=== PATIENT | female | born 1975 | race Two or more races ===

== ENCOUNTER 2018-01-24 19:38 | Emergency (ER) | payer MEDICAID ==
[~2018-01-24] VITALS: Ht 152.4 cm; Wt 55.3 kg
--- NOTE | 2018-01-24 19:38 | NUR ---
PT BB SELF C/O ABDOMINAL PAIN RADAITING TO LOWER BACK X5 DAYS 02/05. PT IS [place] SPEAKING ONLY. VSS NO ACUTE DISTRESS NOTED AT THIS TIME. WILL CONTINUE TO MONITOR FOR ANY CHANGES DURING THE SHIFT.
--- NOTE | 2018-01-24 19:39 | NUR ---
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
[2018-01-24] MEDS ORDERED: MORPHINE SULFATE INJ 2 MG/ML DISP.SYRIN IV ONE (21:30)
[2018-01-24] MEDS ORDERED: IV NS 0.9% 1,000 ML BAG IV ONE (21:30)
[2018-01-24] MEDS ORDERED: ONDANSETRON HCL/PF 4 MG/2 ML VIAL IVP ONE (21:30)
[2018-01-24 21:31] LABS: BASOPHILS % (AUTO) 0.4 % (0.0-2.0); EOSINOPHILS % (AUTO) 1.9 % (0.0-6.0); HEMATOCRIT 31 % (33-45); HEMOGLOBIN 10.1 g/dL (11.5-14.8); LYMPHOCYTES # (AUTO) 2.8 /CMM (0.8-4.8); LYMPHOCYTES % (AUTO) 31.2 % (20.0-44.0); MEAN CORPUSCULAR HEMOGLOBIN 22 PG (26.0-33.0); MEAN CORPUSCULAR HGB CONC 33 g/dl (31.0-36.0); MEAN CORPUSCULAR VOLUME 67 fL (82-100); MONOCYTES # (AUTO) 0.6 /CMM (0.1-1.30); MONOCYTES % (AUTO) 6.2 % (2.0-12.0); NEUTROPHILS # (AUTO) 5.3 /CMM (1.8-8.9); NEUTROPHILS % (AUTO) 60.3 % (43.0-81.0); PLATELET COUNT (AUTO) 262 /CMM (150-450); RDW COEFFICIENT OF VARIATION 15.3 (11.5-15.0); WHITE BLOOD COUNT (AUTO) 8.9 K/uL (4.3-11.0)
[2018-01-24] MEDS ORDERED: ONDANSETRON HCL/PF 4 MG/2 ML VIAL ONE (21:37)
[2018-01-24] MEDS ORDERED: MORPHINE SULFATE INJ 4 MG/ML DISP.SYRIN ONE (21:38)
[2018-01-24 21:44] LABS: CREATININE 0.7 mg/dL (0.6-1.3); POTASSIUM 3.4 mmol/L (3.5-5.1)
[2018-01-24 21:48] LABS: INR 0.97 (0.85-1.15)
[2018-01-24 21:49] LABS: ALBUMIN 3.7 g/dL (3.4-5.0); BILIRUBIN,DIRECT 0.1 mg/dL (0.0-0.2); BILIRUBIN,TOTAL 0.2 mg/dL (0.2-1.0); TOTAL PROTEIN, SERUM 7.7 g/dL (6.4-8.2)
[2018-01-24] MEDS ORDERED: IOHEXOL-300 100 ML VIAL IV ONE (21:49)
[2018-01-24 22:36] LABS: APPEARANCE,URINE SL CLOUDY (CLEAR); BILIRUBIN,URINE NEGATIVE (NEGATIVE); BLOOD, URINE NEGATIVE Ery/uL (NEGATIVE); COLOR,URINE YELLOW (YELLOW); KETONES,URINE TRACE (NEGATIVE); LEUKOCYTE ESTERASE ,URINE NEGATIVE (NEGATIVE); NITRITE, URINE NEGATIVE (NEGATIVE); PROTEIN,URINE NEGATIVE (NEGATIVE); UGLUCOSE NEGATIVE (NEGATIVE); UROBILINOGEN,URINE 0.2 EU/dL (0.2)
[2018-01-24 22:54] LABS: EOSINOPHILS % (MANUAL) 3 % (0-4); LYMPHOCYTES % (MANUAL) 25 % (16-48); MONOCYTES % (MANUAL) 6 % (0-11.0); NEUTROPHILS % (MANUAL) 66 (42-76)
[2018-01-24 23:49] LABS: BACTERIA,URINE Moderate /HPF (None Seen); RBC,URINE 0-2 /HPF (0-2); SQUAMOUS EPITHELIAL CELL,UR Few /HPF (None Seen)
[2018-01-25 00:37] VITALS: BP 135/84
== END 2018-01-25 00:37 | disposition home or self-care (01) ==
LOC: ER 19:41
DX: R10.84 Generalized abdominal pain (principal); Z87.42 Personal history of other diseases of the female genital tract
CPT/HCPCS: 36415; 74177; 80048; 80076; 81001; 83690; 85025; 85730; 87077; 87086; 87186; 96374; 99285; A4606; J2405; J7030; Q9967; Z7610; 81000-TC; J2270

== ENCOUNTER 2018-10-09 19:35 | Emergency (ER) | payer MEDICAID ==
[~2018-10-09] VITALS: Ht 154.9 cm; Wt 61.7 kg
[2018-10-09 20:12] VITALS: BP 119/68
--- NOTE | 2018-10-09 20:12 | NUR ---
BIBF. C/O "R FOOT PAIN FOR AROUND 3 DAYS, R GREAT TOE PAIN STARTING FROM TOENAIL RADIATING TO MIDFOOT, NO HISTORY OF TRAVEL RECENTLY" -SOB. -N/V -DIZZY. AOX4. AMBULATORY. -TRAUMA NOTED ON SITE.
== END 2018-10-09 22:14 | disposition home or self-care (01) ==
LOC: ER 19:37
DX: M79.674 Pain in right toe(s) (principal)
CPT/HCPCS: 73660-TC

== ENCOUNTER 2020-12-21 23:08 | Emergency (ER) | payer MEDICAID ==
[~2020-12-21] VITALS: Ht 160 cm; Wt 62.6 kg
--- NOTE | 2020-12-21 23:16 | NUR ---
PT AAOX4. BIBSELF C/O BLADDER PAIN X2 DAYS. PLACED IN BED 2 ON MONITOR AND PULSE OX. VSS. AWAITING ER MD FOR EVAL.
[2020-12-22 00:01] LABS: BILIRUBIN,URINE Negative (NEGATIVE); COLOR,URINE YELLOW (YELLOW); LEUKOCYTE ESTERASE ,URINE Small (NEGATIVE); NITRITE, URINE Negative (NEGATIVE); PH,URINE 5.5 (5.0-8.0); PROTEIN,URINE Negative (NEGATIVE); UGLUCOSE Negative (NEGATIVE); UROBILINOGEN,URINE 0.2 EU/dL (0.2)
[2020-12-22 00:28] LABS: BACTERIA,URINE Few /HPF (None Seen); RBC,URINE 0-2 /HPF (0-2); SQUAMOUS EPITHELIAL CELL,UR Moderate /HPF (None Seen); YEAST,URINE Few /HPF (None Seen)
[2020-12-22] MEDS ORDERED: NITR100C6 PO (00:38)
[2020-12-22 00:57] VITALS: BP 129/72
== END 2020-12-22 00:57 | disposition home or self-care (01) ==
LOC: ER 23:12
DX: N39.0 Urinary tract infection, site not specified (principal)
CPT/HCPCS: 81001; 84703-TC